=== PATIENT | male | born 1995 | race Hispanic/Latino ===

== ENCOUNTER 2021-05-17 17:23 | Emergency (ER) | payer OTHER ==
[~2021-05-17] VITALS: Ht 180.3 cm; Wt 67.6 kg
[2021-05-17 17:24] VITALS: BP 123/59
[2021-05-17] MEDS ORDERED: SULF1TAB42 PO (19:16)
[2021-05-17] MEDS ORDERED: CEPH500B PO (19:16)
[2021-05-17] MEDS ORDERED: ACET1TAB25 PO (19:16)
[2021-05-17 19:30] VITALS: BP 126/87
== END 2021-05-17 19:30 | disposition home or self-care (01) ==
LOC: EDH 17:23
DX: L03.113 Cellulitis of right upper limb (principal); F17.200 Nicotine dependence, unspecified, uncomplicated
CPT/HCPCS: 73130; 87070; 87076